=== PATIENT | female | born 1995 | race Caucasian/White ===

== ENCOUNTER → 2017-04-17 | Outpatient (CLI) | payer BC ==
[~2017-04-17] MED LIST: CODACE30 PO
[2017-04-17 18:01] LABS: Specimen Source CERVIX
[2017-04-18 14:42] LABS: Source Cervix
== END | disposition home or self-care (01) ==
LOC: LAB 18:00
PROVIDERS: Obstetrics & Gynecology Gynecology
DX: Z11.3 Encounter for screening for infections with a predominantly sexual mode of transmission (principal)
CPT/HCPCS: 87491; 87591

== ENCOUNTER → 2018-04-16 | Outpatient (CLI) | payer BC ==
[2018-04-18 14:08] LABS: HPV 16 Negative (Negative); HPV OTHER HR TYPES Negative (Negative)
[2018-04-19 02:10] LABS: CHLAMYDIA TRACHOMATIS, NAA Negative (Negative); NEISSERIA GONORRHOEAE, NAA Negative (Negative)
[2018-04-21 05:07] LABS: HPV 18 Negative (Negative)
== END | disposition home or self-care (01) ==
LOC: LAB 19:05 → LAB SHORT 19:05
PROVIDERS: Obstetrics & Gynecology Gynecology
DX: Z12.4 Encounter for screening for malignant neoplasm of cervix (principal); Z11.3 Encounter for screening for infections with a predominantly sexual mode of transmission
CPT/HCPCS: 87491; 87591; 87624; G0123

== ENCOUNTER → 2021-04-24 | Outpatient (CLI) | payer BC ==
[2021-04-27 10:10] LABS: CHLAMYDIA TRACHOMATIS, NAA Negative (Negative)
== END | disposition home or self-care (01) ==
LOC: LAB SHORT 15:34
PROVIDERS: Advanced Practice Midwife
DX: Z01.419 Encounter for gynecological examination (general) (routine) without abnormal findings (principal); Z11.3 Encounter for screening for infections with a predominantly sexual mode of transmission
CPT/HCPCS: 87491; 87591; G0123

== ENCOUNTER → 2023-10-07 | Outpatient (CLI) | payer OTHER ==
[~2023-10-07] MED LIST changes: +HYDROCODONE-AC1 EA10 PO; +IBUP600 PO; +NEXPLANON68 MG; +ONDA4ODT MM; +SULFAMETHOXAZO1 EAC1
== END ==
LOC: LAB 14:24 → LAB SHORT 14:24
DX: R35.0 Frequency of micturition (principal)
CPT/HCPCS: 87086

== ENCOUNTER 2023-10-14 10:51 | Emergency (ER) | payer OTHER ==
[~2023-10-14] VITALS: Ht 154.9 cm; Wt 56.7 kg
[~2023-10-14 10:51] MED LIST changes: -HYDROCODONE-AC1 EA10 PO; -IBUP600 PO; -NEXPLANON68 MG; -ONDA4ODT MM; -SULFAMETHOXAZO1 EAC1
[2023-10-14] MEDS ORDERED: Ondansetron HCl 2 MG / ML 2ML Vial IV ONE (11:20)
[2023-10-14] MEDS ORDERED: Ketorolac Tromethamine 30mg Vial IV ONE (11:20)
[2023-10-14 11:36] LABS: BASOPHILS ABSOLUTE AUTO 0.06 K/mm3 (0.00-0.23); BASOPHILS PERCENT AUTO 0 % (0-2); EOSINOPHILS ABSOLUTE AUTO 0.01 K/mm3 (0.00-0.68); EOSINOPHILS PERCENT AUTO 0 % (0-6); Hematocrit 40.7 % (33.0-51.0); Hemoglobin 13.8 g/dL (11.5-16.0); IMMATURE GRAN ABSOLUTE AUTO 0.07 K/mm3 (0.00-0.10); IMMATURE GRAN PERCENT AUTO 1 % (0-1); LYMPHOCYTES ABSOLUTE AUTO 1.63 K/mm3 (0.84-5.20); LYMPHOCYTES PERCENT AUTO 11 % (21-46); MONOCYTES ABSOLUTE AUTO 0.58 K/mm3 (0.16-1.47); MONOCYTES PERCENT AUTO 4 % (4-13); Mean Corpuscular HGB 29.6 pg (26.0-34.0); Mean Corpuscular HGB Conc 33.9 g/dL (31.5-36.5); Mean Corpuscular Volume 87 fL (80-100); NEUTROPHILS ABSOLUTE AUTO 12.75 K/mm3 (1.96-9.15); NEUTROPHILS PERCENT AUTO 84 % (41-73); Platelet Count 307 K/mm3 (150-400); RDW Standard Deviation 38.8 fL (35.1-46.3); Red Blood Cell Count 4.66 M/mm3 (3.80-5.20)
[2023-10-14 12:09] LABS: Source, Urine Clean Catch
[2023-10-14 12:10] LABS: Albumin, Blood 4.6 g/dL (3.4-5.0); Albumin/Globulin Ratio 1.3 (0.8-1.8); Bilirubin, Total 0.7 mg/dL (0.1-1.0); Bun/Creatinine Ratio 9.2 (12.0-20.0); Calcium, Blood 9.2 mg/dL (8.5-10.1); Creatinine, Blood 0.98 mg/dL (0.40-1.00); Globulin, Blood 3.5 g/dL (2.2-4.0); Potassium, Blood 3.6 mmol/L (3.5-5.5); Total Protein, Blood 8.1 g/dL (6.4-8.2)
[2023-10-14 12:37] LABS: Bilirubin, Urine Neg (Neg); Blood, Urine 5+ (Neg); Glucose Qualitative, Urine Neg (Neg); Ketones, Urine 4+ (Neg); Leukocyte Esterase, Urine 1+ (Neg); Nitrite, Urine Neg (Neg); Protein, Urine 2+ (Neg); Specific Gravity, Urine 1.025 (1.003-1.022); Urobilinogen, Urine 1+ (Normal)
[2023-10-14 12:51] LABS: Appearance, Urine Hazy (Clear); Color, Urine Yellow (P-Yellow)
[2023-10-14] MEDS ORDERED: SULFAMETHOXAZO1 EAC1 (12:51)
[2023-10-14 12:52] LABS: Bacteria Few /hpf; Red Blood Cells, Urine 25-50 /hpf (0-2); Squamous Epithelial Cells Few /hpf (Few)
[2023-10-14] MEDS ORDERED: NEXPLANON68 MG (12:59)
[2023-10-14] MEDS ORDERED: Morphine Sulfate 4 MG/1 ML Injection IV ONE (13:30)
[2023-10-14] MEDS ORDERED: IBUP600 PO (13:51)
[2023-10-14] MEDS ORDERED: ONDA4ODT MM (13:51)
[2023-10-14] MEDS ORDERED: HYDROCODONE-AC1 EA10 PO (13:51)
[2023-10-14 14:10] VITALS: BP 118/61
== END 2023-10-14 14:11 | disposition home or self-care (01) ==
LOC: ER 10:51
PROVIDERS: Emergency Medicine
DX: N20.0 Calculus of kidney (principal); N39.0 Urinary tract infection, site not specified; J45.909 Unspecified asthma, uncomplicated
CPT/HCPCS: 74177; 80053; 81001; 81025; 83690; 85025; 87086; 96374-59; 96375; 99284-25; J1885; J2270; J2405; Q9967

== ENCOUNTER → 2024-06-04 | Outpatient (CLI) | payer OTHER ==
[~2024-06-04] MED LIST changes: +HYDROCODONE-AC1 EA10 PO; +IBUP600 PO; +NEXPLANON68 MG; +ONDA4ODT MM; +SULFAMETHOXAZO1 EAC1
[2024-06-06 11:06] LABS: C. TRACHOMATIS BY TMA,THINPREP Negative (Negative); N. GONORRHOEAE BY TMA,THINPREP Negative (Negative); SPECIMEN SOURCE Cervical
== END ==
LOC: LAB 09:12 → LAB SHORT 09:12
PROVIDERS: Advanced Practice Midwife
DX: Z01.419 Encounter for gynecological examination (general) (routine) without abnormal findings (principal); Z11.3 Encounter for screening for infections with a predominantly sexual mode of transmission
CPT/HCPCS: 87491; 87591; G0123